=== PATIENT | male | born 1990 | race Caucasian/White ===

== ENCOUNTER 2020-01-29 10:05 | Emergency (ER) | payer OTHER, SELFPAY ==
[2020-01-29 10:20] VITALS: BP 127/85; PULSE 74; RESP 20; TEMP 36.9; O2SAT 100
--- NOTE | 2020-01-29 10:31 | ED.EYEPROB ---
HPI - Eye Problem General Chief complaint: Eye Problems Stated complaint: L/eye pain History of Present Illness HPI Narrative: This is a 29-year-old male that comes in from work stating that he got some sawdust or some mold in his left eye. Patient states while he was at work that he flushed his eyes but no change in his eye is burning and hurting really bad and he cannot open his eye. Patient states that his eyes blurry because of so watering he cannot touch it. Related Data Allergies Allergy/AdvReac Type Severity Reaction Status Date / Time No Known Allergies Allergy Verified 01/29/20 10:22 Review of Systems Review of Systems: Narrative: CONSTITUTIONAL: Denies fever, chills, or sweats. EYES: reports left eye visual changes, redness, or discharge. ENT: Denies rhinorrhea, congestion, sore throat, or otalgia. CARDIOVASCULAR:Denies chest pain, palpitations, or edema. RESPIRATORY: Denies cough or dyspnea. GASTROINTESTINAL: Denies abdominal pain, nausea, vomiting, or diarrhea. GENITOURINARY: Denies dysuria or hematuria. SKIN:[Denies rash or itching. MUSCULOSKELETAL:Denies back pain, joint pain, or myalgia. NEUROLOGIC: Denies headache, numbness, or weakness. PSYCHIATRIC:Denies anxiety or depression PMFSH Comments At time as signature, I have reviewed and agree with nursing past medical, social, surgical and family history. Please see nursing chart for further information. There is no relevant family history pertinent to the presenting complaint. Exam Narrative: Exam Narrative: GENERAL:Well-appearing, well-nourished, and in no acute distress. HEAD:Normocephalic, atraumatic. EYES: PERRLA sclerae with erythema swelling of the left eyelid corneal abrasion and EOMI. ENT: Nares clear, no rhinorrhea or epistaxis. Mucous membranes moist. NECK: Supple. CHEST: Clear to auscultation. No respiratory distress. HEART: Regular rate and rhythm. No murmur heard. Normal peripheral pulses. ABDOMEN: Soft, nontender, nondistended, normal active bowel sounds. EXTREMITIES: Normal range of motion. No edema. SKIN: Warm, dry, no rash. NEURO: No focal deficits. Alert and oriented x3. Course Vital Signs Vital signs: Vital Signs Temperature 98.5 F 01/29/20 10:20 Pulse Rate 74 01/29/20 10:20 Respiratory Rate 20 01/29/20 10:20 Blood Pressure 127/85 01/29/20 10:20 Pulse Oximetry 100 01/29/20 10:20 Temperature 98.5 F 01/29/20 10:20 Pulse Rate 74 01/29/20 10:20 Respiratory Rate 20 01/29/20 10:20 Blood Pressure 127/85 01/29/20 10:20 Pulse Oximetry 100 01/29/20 10:20 Procedures FB Removal Eye Foreign Body #1: Foreign Body Removal Date: 01/29/20 Time Out performed: Yes Location: eye (L) Topical anesthetic used: tetracaine Evidence of corneal penetration: No Technique: irrigation and eye wash bottle Post-procedure medication: ophthalmic antibiotic and topical anesthetic Patient tolerated procedure: well Foreign Body Removal Narrative: No foreign body observed corneal abrasion noted under fluorescein staining MDM - Eye Problem Differential Diagnosis Differential diagnosis: Likely corneal abrasion, conjunctivitis, acute iritis, periorbital cellulitis and subconjunctival hemorrhage Discharge Plan Discharge Clinical Impression: Corneal abrasion Qualifiers: Encounter type: initial encounter Laterality: left Qualified Code(s): S05.02XA - Injury of conjunctiva and corneal abrasion without foreign body, left eye, initial encounter Patient Disposition: Home, Self-Care Condition: Stable Instructions: Antibiotic Form, Corneal Abrasion (ED) Additional Instructions: Erythromycin eye drop in the eye every 4 hours while awake after application of a warm compress for 5 - 10 minutes. Do this for 3 to 4 days until all redness and discharge has disappeared. Cold compresses to the eyes for comfort May need warm compresses to remove debris in the morning Whe
== END 2020-01-29 10:48 | disposition home or self-care (01) ==
PROVIDERS: Emergency Provider Nurse Practitioner Family
DX: S05.02XA Injury of conjunctiva and corneal abrasion without foreign body, left eye, initial encounter (principal); X58.XXXA Exposure to other specified factors, initial encounter
CPT/HCPCS: 99203; A9270; G0463

== ENCOUNTER 2022-10-26 09:38 | Emergency (ER) | payer OTHER, SELFPAY ==
--- NOTE | ~2022-10-26 | US_ITS ---
EXAMINATION: US scrotum doppler DATE: 10/26/2022 10:31 INDICATION: Right testicular pain and swelling. TECHNIQUE: Grayscale and Doppler ultrasound images of the testes were obtained. COMPARISON: None. FINDINGS: The right testis measures 5.0 x 3.2 x 2.4 cm. The left testis measures 4.9 x 2.4 x 3.0 cm. There is subtle hypoechogenicity in right testis. There is increased vascular flow in right testis. T he right epididymis is normal with normal vascular flow. The left epididymis demonstrate a 3 mm cyst. There is no varicocele or hydrocele. IMPRESSION: 1. Hypoechoic and hypervascular right testis, consistent with orchitis. Reviewed, dictated and finalized at location A.
[2022-10-26 09:41] VITALS: BP 129/91; PULSE 94; RESP 18; TEMP 36.6; O2SAT 98
[2022-10-26] MEDS: KETOROLAC (*BKC) 60 MG/2 ML VIAL IM (10:43)
[2022-10-26 10:51] LABS: Appearance Urine Clear (Clear); Bacteria Urine None Seen /hpf; Bilirubin Urine Negative (Negative); Blood Urine Negative (Negative); Color Urine Yellow (Yellow); Glucose Urine UA Negative (Negative); Ketones Urine Negative (Negative); Leukocyte Esterase Ur Trace LEU/UL (Negative); Nitrate Urine Negative (Negative); Non Pathogenic Casts 0-2; Protein Urine Negative (Negative); RBC Urine 0-2 /hpf (0-2); Specific Grav Ur 1.005 (1.001-1.035); Squamous Epithelial Cell Urine None seen /hpf (Few); Urobilinogen Urine 0.2 mg/dL (<2.0); WBC Urine 0-5 /hpf
[2022-10-26 11:04] LABS: Add Urine Microscopic? YES
[2022-10-26] MEDS: DOXYCYCLINE HYCLATE 100 MG TABLET PO (11:17)
[2022-10-26] MEDS: cefTRIAXone 1 GM VIAL 0.5 GM IM (11:20)
[2022-10-26] MEDS: LIDOCAINE HCL 1% LOCAL INJ 10 ML VIAL (11:21)
--- NOTE | 2022-10-26 11:43 | ED.MALEGU ---
HPI - Male Genitourinary General Chief complaint: Urogenital-Male Stated complaint: right testicle swelling x 1.5 weeks Time Seen by Provider: 10/26/22 09:41 Source: patient and RN notes reviewed Mode of arrival: ambulatory Limitations: no limitations History of Present Illness HPI Narrative: This is a 32 year old male who presents for evaluation right testicular pain. He reports he has had right testicular pain for 2 weeks and he reports right testicular swelling for 1 week. He denies penile discharge, hematuria, lesion, vomiting or fever. He reports penile pain with sexual intercourse. He has tried ibuprofen for pain. He denies pain with urination. Denies trauma Related Data Allergies Allergy/AdvReac Type Severity Reaction Status Date / Time No Known Allergies Allergy Verified 10/26/22 09:39 Review of Systems Constitutional: Constitutional: Denies weakness Cardiovascular: Cardiovascular: Denies syncope, Denies rapid heart rate, Denies irregular heart rhythm, Denies leg edema and Denies dyspnea Respiratory: Respiratory: Denies chest congestion, Denies hemoptysis, Denies excessive phlegm production and Denies dyspnea Gastrointestinal: Gastrointestinal: Denies abdominal pain, Denies hematochezia, Denies diarrhea and Denies vomiting Genitourinary: Genitourinary: Denies hematuria, Reports dysuria, Denies penile discharge and Reports testicular pain Musculoskeletal: Musculoskeletal: Denies joint swelling, Denies loss of height and Denies muscle weakness Neurologic: Denies syncope, Denies focal weakness and Denies weakness PMFSH Past Medical History Medical History (Updated 10/26/22 @ 12:12 by Moon Contreras MD) Patient denies medical problems Surgical History Surgical History (Updated 10/26/22 @ 11:44 by Moon Contreras MD) No pertinent past surgical history Social History Social History (Updated 10/26/22 @ 18:49 by Moon Contreras MD) Smoking packs per day: 1 Smoking cigarettes per day: 20.0 Smoking status: Current every day smoker Exam Const: General: no acute distress and alert Nutritional Appearance: well nourished HENMT: Head: normal to inspection Eyes: EOM: EOMs intact bilaterally Chest: Chest palpation & inspection: normal inspection of the chest Resp: Effort & Inspection: normal respiratory effort Auscultation: clear to auscultation bilaterally Cardio: Rate: regular rate Rhythm: regular rhythm Heart sounds: no murmurs GI: GI Palp: Yes Soft to palpation, No Tenderness to palpation present (GI), No Guarding due to palpation present (GI) and No Rigid due to palpation Auscultation: normal bowel sounds : General: Yes no CVA tenderness Penis: Yes circumcised Testes: testicular tenderness on the right Back/Spine/Pelvis: Back: no CVA tenderness Skin: General skin exam: normal color Rashes: no rashes Wounds: no wounds Neuro: General: patient oriented x3 and moves all extremities Cranial nerves: Yes CN's II-XII intact bilaterally Speech: normal speech Gait exam (Neuro): Normal gait present Extrem: General: normal to inspection Psych: Mental Status: mental status grossly normal Affect: normal affect Attitude: cooperative Course Reevaluation(s) Reevaluation #1: I Discussed with patient that US shows orchitis and I discussed management with antibiotics, NSAIDS and urology follow up . He does not want to wait on GC chlamydia. He was given rocephin in ER and doxycycline. Date: 10/26/22 Time: 11:46 Vital Signs Vital signs: Vital Signs Temperature 98 F 10/26/22 09:41 Pulse Rate 94 10/26/22 09:41 Respiratory Rate 18 10/26/22 09:41 Blood Pressure 129/91 H 10/26/22 09:41 Pulse Oximetry 98 10/26/22 09:41 Oxygen Delivery Room Air 10/26/22 09:41 Temperature 98 F 10/26/22 09:41 Pulse Rate 94 10/26/22 09:41 Respiratory Rate 18 10/26/22 09:41 Blood Pressure 129/91 H 10/26/22 09:41 Pulse Oximetry 98 10/26/22 09:41 Oxygen Delivery
[2022-10-26 12:14] LABS: Chlamydia trachomatis NOT DETECTED (NOT DETECTE); Neisseria gonorrhoeae PCR NOT DETECTED (NOT DETECTE)
== END 2022-10-26 12:24 | disposition home or self-care (01) ==
PROVIDERS: Emergency Provider General Practice
DX: N45.2 Orchitis (principal); F17.210 Nicotine dependence, cigarettes, uncomplicated
CPT/HCPCS: 76870; 81001; 87491; 87591; 93976; 96372; 99284; A9270; J0696; J1885

== ENCOUNTER 2023-11-18 09:33 | Emergency (ER) | payer OTHER, SELFPAY ==
--- NOTE | ~2023-11-18 | XR_ITS ---
XR humerus RT Ordering provider: Sarah Garcia APRN History: . pain rt prox humerus x1 hour, abrasion noted hit by plywood . Comparison: None. FINDINGS: BONES: No acute fracture or dislocation. JOINT SPACES: Normal. SOFT TISSUES: Normal. IMPRESSION: No acute osseous abnormality right humerus. Reviewed, dictated and finalized at location A.
--- NOTE | ~2023-11-18 | XR_ITS ---
XR shoulder RT min 2V Ordering provider: Sarah Garcia APRN History: . pain rt prox humerus x1 hour, abrasion noted hit by plywood . Comparison: None. FINDINGS: BONES: No acute fracture or dislocation. JOINT SPACES: The acromioclavicular joint shows osteoarthritic changes.. The glenohumeral joint is no rmal. SOFT TISSUES: Normal. IMPRESSION: No acute osseous abnormality right shoulder. Reviewed, dictated and finalized at location A.
[2023-11-18 09:44] VITALS: BP 138/87; PULSE 78; RESP 16; TEMP 36.7; O2SAT 100
--- NOTE | 2023-11-18 10:15 | ED.GENADULT ---
HPI - General Adult General Chief complaint: Extremity Problem,Nontraumatic Stated complaint: RT Arm Pain Time Seen by Provider: 11/18/23 10:16 Source: patient, RN notes reviewed and old records reviewed Mode of arrival: ambulatory Limitations: no limitations History of Present Illness HPI narrative: 33-year-old male presents to the [facility] with right shoulder pain, abrasion to the biceps. States that a piece fell landing shoulder scratching his arm. Unknown last Tdap. Patient is declining a tetanus at this time. Encourage patient to follow up and get a tetanus which he again is declining Injury occurred less than 1 hour prior to arrival Denies apply would hitting his head. No neck or back pain. Denies headache. Treatments prior to arrival: none Related Data Home Medications Medication Instructions Recorded Confirmed No Home Medications 11/18/23 11/18/23 Allergies Allergy/AdvReac Type Severity Reaction Status Date / Time No Known Allergies Allergy Verified 11/18/23 09:48 Review of Systems Review of Systems: All systems reviewed & are unremarkable except as noted in HPI and below Constitutional: Constitutional: Reports no additional constitutional complaints Eyes: Eyes: Reports no additional eye complaints ENT: Reports system reviewed and no additional complaints, except as documented Cardiovascular: Cardiovascular: Reports no additional cardiovascular complaints, Denies chest pain and Denies dyspnea Respiratory: Respiratory: Reports no additional respiratory complaints, Denies chest congestion, Denies cough and Denies dyspnea Gastrointestinal: Gastrointestinal: Reports no additional gastrointestinal complaints, Denies abdominal pain, Denies nausea and Denies vomiting Musculoskeletal: Musculoskeletal: Reports as per HPI Integumentary/Breasts: Skin/Breast: Reports as per HPI Neurologic: Reports system reviewed and no additional complaints, except as documented Psychiatric: Psychiatric: Reports no additional psychiatric complaints Allergic/Immunologic: Allergic/Immunologic: Reports no additional allergic/immunologic complaints [facility] Past Medical History Medical History Patient denies medical problems Surgical History Surgical History No pertinent past surgical history Social History Social History Smoking packs per day: 1 Smoking cigarettes per day: 20.0 Smoking status: Current every day smoker Comments At the time of my signature, I reviewed and agree with the nursing past medical, surgical, social, and family history. There is no relevant family history pertinent to the patient complaint. Exam Const: General: cooperative, healthy appearing, comfortable, no acute distress, well developed, alert and well nourished Nutritional Appearance: well nourished Orientation/consciousness: patient oriented x3 Limitations: no limitations HENMT: Head: normal to inspection Ears: hearing grossly normal bilaterally and external ears normal Face/Nose/Sinus: Normal external nose present, Normal nares present, Normal nasal mucous membranes and turbinates present, normal facial exam and face symmetric Face and sinus: normal facial exam and face symmetric Eyes: General: appearance normal, both eyes and all related structures Alignment and Position: alignment normal Periorbital: periorbital findings normal Neck: Neck: normal visual inspection, full ROM, no lymphadenopathy and no meningeal signs Chest: Chest palpation & inspection: normal inspection of the chest Resp: Effort & Inspection: normal respiratory effort and able to speak in complete sentences Auscultation: clear to auscultation bilaterally, no crackles, no rales, no rhonchi and no wheezes Cardio: Rate: regular rate Rhythm: regular rhythm Back/Spine/Pelvis: Back: No back t
== END 2023-11-18 11:12 | disposition home or self-care (01) ==
PROVIDERS: Emergency Provider Nurse Practitioner
DX: S40.011A Contusion of right shoulder, initial encounter (principal); S40.811A Abrasion of right upper arm, initial encounter; W20.8XXA Other cause of strike by thrown, projected or falling object, initial encounter; Y99.0 Civilian activity done for income or pay
CPT/HCPCS: 73030; 73060; 99213; G0463